=== PATIENT | male | born 2000 | race Caucasian/White ===

== ENCOUNTER → 2020-01-20 | Outpatient (CLI) | payer BC ==
[~2020-01-20] MED LIST: ALBUTEROL2.5 MG/3 M IH; FOCALIN XR15 MG PO; PROVENTIL HFA6.7 GM INH; SINGULAR PO; ZITHROMAX TRI-500 MG
--- NOTE | 2020-01-20 17:19 | Diagnostic Imaging Report ---
EXAM: Renal Ultrasound INDICATION: ^[id number] ^[id number] ^PERSONAL HX OF URINARY CALCULI; UTI COMPARISON: KUB of the same day TECHNIQUE: Transverse and longitudinal images of the kidneys and bladder were obtained. FINDINGS: Right Kidney: Length: 10.0 cm Appearance: Normal echogenicity. Collecting system: Minimal hydronephrosis, resolved on postvoid images Stones: None Cyst/Mass: None Left Kidney: Length: 11.9 cm Appearance: Normal echogenicity. Collecting system: No hydronephrosis Stones: None Cyst/Mass: None Bladder: No mass or calculi. Bilateral ureteral jets visualized. Prevoid volume estimate of 634 cc. Postvoid image of the bladder demonstrates complete postvoid emptying. The prostate measures 2. 4.0 x 3.7 cm with volume estimate of 18 cc. IMPRESSION: Minimal prevoid right hydronephrosis, resolved on postvoid images. No renal calculi. Pre and post void bladder volumes as above. Signed by: Alberto Soni MD on 01/20/2020 5:16 PM
--- NOTE | 2020-01-20 17:20 | Diagnostic Imaging Report ---
Exam: KUB - 2 views Indication: Urinary calculi Comparison: Renal ultrasound of the same day Findings: No radiographically apparent urinary calculi. Nonobstructive bowel gas pattern. No free air. No acute osseous injury. Impression: No radiographically apparent urinary calculi. Signed by: Alberto Soni MD on 01/20/2020 5:17 PM
== END ==
LOC: US 16:06
PROVIDERS: ATTEND Urology
DX: N39.0 Urinary tract infection, site not specified (principal); Z87.442 Personal history of urinary calculi
CPT/HCPCS: 74018; 76770; 76857

== ENCOUNTER → 2020-02-03 | Day surgery (SDC) | payer BC, OTHER ==
[~2020-02-03] MED LIST changes: +AZO BLADDER CO300 MG PO; +B&O 60MG R/S 60 MG SUPP PR ONE; +CEFTRIAXONE SOD 1 GM/NS 50 ML 50 ML IV ONE; +CLARITIN PO; +CORICIDIN COLD1 EACH PO; +DEXAMETHASONE SOD PHOS INJ 4 MG/ML VIAL ONE; +DOXYCYCLINE HYC50 MG PO; +ETOMIDATE 2 MG/ML 10 ML INJ IV ONE; +FENTANYL CITRATE/PF 100MCG/2 ML INJ ONE; +IOPAMIDOL 300MG/ML 50ML INFUS..BTL IV ONE; +MIDAZOLAM HCL 2 MG/2 ML VIAL ONE; +ONDANSETRON HCL INJ 2MG/ML 2ML 2 MG/ML VIAL ONE; +PROPOFOL IV EMULSION 10 MG/ML 20 ML VIAL ONE
[2020-02-03 17:00] VITALS: BP 123/82
--- NOTE | 2020-02-04 18:33 | Operative Report ---
DATE OF PROCEDURE: 02/03/2020 SURGEON: Ilya Kahn MD PREOPERATIVE DIAGNOSES: 1. Possible interstitial cystitis. 2. Hematuria, both gross and microscopic. POSTOPERATIVE DIAGNOSES: 1. Urethral stricture disease. 2. Interstitial cystitis. 3. Gross hematuria. 4. Microhematuria. TEST PERFORMED: 1. Cystourethroscopy with calibration and dilation of urethral stricture (separate procedure performed for the diagnosis of stricture). 2. Cystourethroscopy with hydrodistention (separate procedure performed for the interstitial cystitis). 3. Cystourethroscopy with bilateral ureteral catheterization and retrograde ureteropyelography (separate procedure performed for the hematuria). 4. Interpretation of retrograde ureteropyelography. 5. Supervision of fluoroscopy, no radiologist present. ANESTHESIA: General. COMPLICATIONS: None. CLINICAL SUMMARY: Nikolas Bradley is a 19-year-old man with frequency and urgency. He has had a previous urethral stricture disease. He had a meatotomy by Dr. Roach and has also had a dilation of stricture subsequently. The patient has urgency and frequency and "lives on ." The patient is brought for evaluation. He is aware of the risks of bleeding, infection, injury to adjacent structures, need for additional procedures, and he elected to proceed. OPERATIVE PROCEDURE IN DETAIL: Informed consent was verified. Nikolas Bradley was properly identified, taken to the operating room, placed on the cystoscopy table in supine position. Anesthesia was uneventfully begun. The patient was then carefully and gently repositioned in the dorsal lithotomy position with all pressure points well padded. His genitalia were prepared and draped in usual sterile fashion. The cystoscope sheath with the 22.5-Irish diameter was inserted atraumatically into the patient's urethra. It was guided down the unremarkable distal urethra to the sphincteric region where there was tightness and as we went through the sphincteric region, we dilated it to 22.5-Irish in size. We then went through the normal prostate bed and entered the patient's bladder, which showed grade 1-2 trabeculations. There were no suspicious lesions. There were no tumors. There were no true diverticula. A 8-Irish catheter was used to cannulate each ureter and retrograde ureteral pyelograms were performed. Interpretation of retrograde ureteropyelography contrast was instilled in retrograde fashion bilaterally. There were no tumors, no stones, and no diverticula. There was bilateral upper tract fullness of both kidneys, but there was unobstructed drainage observed fluoroscopically. Hydrodistention of the bladder was then carried out for exactly 2 minutes by the clock and to 80 cm in water height. This resulted in a bladder capacity of only 600 mL. Following this, panendoscopy revealed diffuse glomerulations throughout the bladder. The patient's bladder was drained. The cystoscope was withdrawn. Belladonna opium suppository was placed revealing a small 10 g prostate, smooth and non-fluctuant without any nodules and the patient was uneventfully reversed from anesthesia and taken to recovery room in stable condition. There were no complications to the procedure and he tolerated the procedure well. He was prescribed Elmiron. We will follow the patient up in another month and reassess his symptomatology. Ilya Kahn MD [place]/[facility] /[id number] cc: Alfonso Mcfarland MD
== END | disposition home or self-care (01) ==
LOC: OR 12:30
PROVIDERS: ATTEND Urology
DX: N35.919 Unspecified urethral stricture, male, unspecified site (principal); N30.10 Interstitial cystitis (chronic) without hematuria; N32.89 Other specified disorders of bladder; R35.1 Nocturia; Z87.442 Personal history of urinary calculi; N13.30 Unspecified hydronephrosis; Z91.040 Latex allergy status; F90.9 Attention-deficit hyperactivity disorder, unspecified type; J45.909 Unspecified asthma, uncomplicated; I38 Endocarditis, valve unspecified; Z01.812 Encounter for preprocedural laboratory examination; Z11.59 Encounter for screening for other viral diseases
CPT/HCPCS: 52260; 74420; C1758; J0696; J1100; J2250; J2405; J2704; J3010; Q9967; U0002

== ENCOUNTER → 2024-02-12 | Day surgery (SDC) | payer BC ==
[2024-02-11 14:11] LABS: BASOPHILS # (AUTO) 0.1 (0.0-0.1); BASOPHILS % 1.5 % (0.0-1.0); EOSINOPHILS # (AUTO) 0.2 (0.0-0.4); HEMATOCRIT 44.4 % (38.2-49.6); HEMOGLOBIN 14.5 g/dL (14.0-18.0); LYMPHOCYTES # (AUTO) 1.9 (1.0-3.2); LYMPHOCYTES % 35.6 % (18.0-39.1); MEAN CORPUSCULAR HGB CONC 32.7 g/dL (31-35); MEAN CORPUSCULAR VOLUME 91.9 fL (81-99); MONOCYTES # (AUTO) 0.4 (0.2-0.8); MONOCYTES % 8.3 % (4.4-11.3); NEUTROPHILS # (AUTO) 2.7 (2.1-6.9); NEUTROPHILS % 51.4 % (38.7-80.0); PLATELET COUNT 246 x10e3/uL (140-360); RED BLOOD COUNT 4.83 x10e6/uL (4.3-5.7); RED CELL DISTRIBUTION WIDTH 11.9 % (11.7-14.4); WHITE BLOOD COUNT 5.33 x10e3/uL (4.8-10.8)
[2024-02-11 14:23] LABS: ANION GAP 13.1 mmol/L (8-16); CALCIUM 10.1 mg/dL (8.4-10.2); CREATININE, SERUM 0.95 mg/dL (0.72-1.25); POTASSIUM 4.1 mmol/L (3.5-5.1)
[~2024-02-12] MED LIST changes: +ACETAMINOPHEN/CODEINE 300MG - 30MG TAB ONE; -B&O 60MG R/S 60 MG SUPP PR ONE; -CEFTRIAXONE SOD 1 GM/NS 50 ML 50 ML IV ONE; +DEXAMETHASONE SOD PHOS INJ 4 MG/ML SDV ONE; -DEXAMETHASONE SOD PHOS INJ 4 MG/ML VIAL ONE; +ELMIRON100 MG; -ETOMIDATE 2 MG/ML 10 ML INJ IV ONE; -IOPAMIDOL 300MG/ML 50ML INFUS..BTL IV ONE; +IOPAMIDOL 610MG/1ML 300 MG/ML VIAL IV ONE; +LIDOCAINE HCL 2% LOCAL INJ 5 ML SDV VIAL INJ ONE; +SEVOFLURANE INHAL SOLN 250 ML PEN BTL ONE; +URO-MP CAPSULE1 EACH
[2024-02-12] MEDS: CEFTRIAXONE 1 GM VIAL ONE (10:56)
[2024-02-12] MEDS: LACTATED RINGER'S 1,000 ML ONE (10:56)
[2024-02-12] MEDS: PHENAZOPYRIDINE HCL 100 MG TAB ONE (13:45)
[2024-02-12] MEDS: ACETAMINOPHEN/CODEINE 300MG - 30MG TAB PO ONE (14:11)
[2024-02-12 14:25] VITALS: BP 116/78; PULSE 69; RESP 16; O2SAT 99
== END | disposition home or self-care (01) ==
LOC: OR 10:04
PROVIDERS: ATTEND Urology
DX: N30.10 Interstitial cystitis (chronic) without hematuria (principal); N32.81 Overactive bladder; N32.89 Other specified disorders of bladder; Z87.442 Personal history of urinary calculi; R39.14 Feeling of incomplete bladder emptying; R39.12 Poor urinary stream; F90.9 Attention-deficit hyperactivity disorder, unspecified type; Z91.040 Latex allergy status; Z91.018 Allergy to other foods; Z01.812 Encounter for preprocedural laboratory examination; Z79.899 Other long term (current) drug therapy
CPT/HCPCS: 36415; 52260; 74420; 80048; 85025; 87086; C1758; J0696; J1100; J2003; J2250; J2405; J2704; J3010; J7121; Q9967